=== PATIENT | male | born 1985 | race African-American/Black ===

== ENCOUNTER 2017-12-14 10:00 | Inpatient (IN) | payer OTHER ==
[2017-12-14 10:47] VITALS: BMI 37.2
--- NOTE | 2017-12-14 12:40 | HP ---
Admission ROS [facility] Chief Complaint: Here for inpatient rehab. Allergies/Adverse Reactions: Allergies Allergy/AdvReac Type Severity Reaction Status Date / Time bee pollen Allergy Verified 12/14/17 11:40 History of Present Illness: I was sent here by [facility] because of my continued marijuana and Melisa use. Marijuana use since age 14. Melisa use since age 23. Denies other substance use. Denies hx seizures or blackouts. Hx mental health disorders and being f/u at [facility]. Recent Hx suicide attempt in August 2017. Denies current thoughts of harming self or others. Search Terms: Osvaldo Zapata, 1985 Search Date: 12/14/2017 12:59:55 PM The Drug Utilization Report below displays all of the controlled substance prescriptions, if any, that your patient has filled in the last twelve months. The information displayed on this report is compiled from pharmacy submissions to the Department, and accurately reflects the information as submitted by the pharmacies. This report was requested by: Agustina Menezes | Reference #: [id number] Exam Limitations: No Limitations - Ebola screening Have you traveled outside of the country in the last 21 days: No Have you had contact with anyone from an Ebola affected area: No Have you been sick,other than usual withdrawal symptoms: No Do you have a fever: No - Review of Systems Constitutional: Changes in sleep (Difficulty staying asleep. Takes prescription benadryl. Unsure of dose.) EENT: reports: No Symptoms Reported Respiratory: reports: SOB with Exertion (After 2 flights of stairs), Other (Hx asthma. States has sleep apnea. States has a CPap machine. Haven't used it for a while.) Cardiac: reports: No Symptoms Reported GI: reports: Indigestion (Acid reflux - takes prilosec - last took 2 weeks ago) : reports: Frequency (States urinates small amounts q 1/2 to 1 hr during day. Also has frequency HS) Musculoskeletal: reports: No Symptoms Reported (Chronic LBP - achy & sharp "6". Get worses when l;aying down. Improves w/ stretching and walking.), Back Pain Integumentary: reports: No Symptoms Reported Neuro: reports: Numbness (Occ numbness (L) hand since it was broken 1 year ago.) Endocrine: reports: Increased Urine Hematology: reports: No Symptoms Reported Psychiatric: reports: Judgement Intact, Orientated x3, Anxious, Depressed ( Denies thoughts of harming self or others.), other (Hx: bipolar and schizophrenia. [facility] - last seen in October 2017.) Patient History - Patient Medical History Hx Asthma: Yes (Last exacerbation 2 weeks ago resolvced w/ albuterol inhaler) Hx Chronic Obstructive Pulmonary Disease (COPD): No Hx Cancer: No Hx Cardiac Disorders: No Hx Congestive Heart Failure: No Hx Hypertension: No Hx Hypercholesterolemia: No Hx Pacemaker: No HX Cerebrovascular Accident: No Hx Seizures: No Hx Dementia: No Hx Diabetes: No Hx Gastrointestinal Disorders: Yes (GERD) Hx Liver Disease: No Hx Genitourinary Disorders: Yes (Frequency of urination) Hx Sexually Transmitted Disorders: No Hx Renal Disease (ESRD): No Hx Thyroid Disease: No Hx Human Immunodeficiency Virus (HIV): No ( - 2017) Hx Hepatitis C: No Hx Depression: Yes Hx Suicide Attempt: Yes (August 2017) Hx Bipolar Disorder: Yes Hx Schizophrenia: Yes - Patient Surgical History Hx Abdominal Surgery: Yes (Colon resection - 1986) Hx Orthopedic Surgery: Yes (Repair (L) hand fracture 2016) Anesthesia Reaction: No - PPD History Previous Implant?: Yes Documented Results: Negative w/o proof Implanted On Prior R Admission?: No PPD to be Administered?: Yes - Smoking Cessation Smoking history: Current every day smoker Have you smoked in the past 12 months: Yes Aproximately how many cigarettes per day: 10 Hx Chewing Tobacco Use: No Initiated information on smoking cessation: Yes 'Breaking Loose' booklet given: 12/14/17 - Substance & Tx. History Hx Alcohol Use: Yes Hx Substance Use: Yes Substance Use Type: Marijuana, Tranquilizers (Melisa) Hx Substance Use Treatment: Yes (rehab) Admission Physical Exam [facility] - Vital Signs Vital Signs: Vital Signs - 24 hr 12/14/17 10:43 Temperature 98.5 F Pulse Rate 92 H Respiratory 19 Rate Blood Pressure 145/87 - Physical General Appearance: Yes: No Apparent Distress, Nourished HEENTM: Yes: EOMI, Hearing grossly Normal, Normocephalic, Normal Voice, MALCOLM, Other (Enlarged tonsils - stage 4, w/o erythema, lesions, or exudate.) Respiratory: Yes: Chest Non-Tender, Lungs Clear, Normal Breath Sounds, No Respiratory Distress Neck: Yes: No masses,lesions,Nodules, Supple Breast: Yes: Breast Exam Deferred Cardiology: Yes: Regular Rhythm, Regular Rate, S1, S2 Abdominal: Yes: Normal Bowel Sounds, Non Tender, Soft, Protuberent (Increased abdominal adiposity), Surgical Scar (Old and irregular shape.) Genitourinary: Yes: Frequency Back: Yes: Normal Inspection Musculoskeletal: Yes: full range of Motion (FROM all extremities. Able to bend and touch toes.), Gait Steady Extremities: Yes: Normal Capillary Refill, Normal Inspection, Normal Range of Motion, Non-Tender Neurological: Yes: lard bleacher II-XII NML intact, Fully Oriented, Alert, Motor Strength 5/5, Normal Response Integumentary: Yes: Normal Color, Dry, Warm Lymphatic: Yes: Within Normal Limits - Diagnostic (1) Marijuana dependence Current Visit: Yes Status: Chronic (2) Hallucinogen abuse, uncomplicated Current Visit: Yes Status: Chronic (3) Nicotine dependence, uncomplicated Current Visit: Yes Status: Chronic Qualifiers: Nicotine product type: cigarettes Qualified Code(s): F17.210 - Nicotine dependence, cigarettes, uncomplicated (4) Asthma Current Visit: Yes Status: Chronic Qualifiers: Asthma severity: unspecified severity Asthma persistence: intermittent Asthma complication type: uncomplicated Qualified Code(s): J45.20 - Mild intermittent asthma, uncomplicated (5) Tonsillar enlargement Current Visit: Yes Status: Chronic Cleared for Admission BHS - Detox or Rehab Claeared for Rehab Admission: Yes [facility] Breath Alcohol Content Breath Alcohol Content: 0 Urine Drug Screen - Results Drug Screen Negative: No Urine Drug Screen Results: THC-Marijuana Inpatient Rehab Admission - Initial Determination Are CD services needed?: Yes Free of communicable disease: Yes Not in need of hospitalization: Yes - Rehab Admission Criteria Previous failed treatment: Yes Poor recovery environment: Yes Comorbidities: Yes Lacks judgement: No Patient is meeting Inpatient Rehab admission criteria:: Yes
[2017-12-14] MEDS ORDERED: guaiFENesin/D-METHORPHAN HB 10 ML UNIT-DOSE CUPS PO PRN (13:12)
[2017-12-14] MEDS ORDERED: IBUPROFEN 400 MG TABLET (FP) PO PRN (13:12)
[2017-12-14] MEDS ORDERED: MAG HYDROX/AL HYDROX/SIMETH 30 ML UNIT-DOSE CUP PO PRN (13:12)
[2017-12-14] MEDS ORDERED: ACETAMINOPHEN 325 MG TABLET (FP) PO PRN (13:12)
[2017-12-14] MEDS ORDERED: hydrOXYzine PAMOATE 50 MG CAPSULE (FP) PO PRN (13:12)
[2017-12-14] MEDS ORDERED: MAGNESIUM CITRATE 300 ML BOTTLE PO PRN (13:12)
[2017-12-14] MEDS ORDERED: MENTHOL/PHENOL 1 EACH UD MM PRN (13:12)
[2017-12-14] MEDS ORDERED: MAGNESIUM HYDROX 2400MG/30ML ORAL SUSPENSION 30 ML CUP PO PRN (13:12)
[2017-12-14] MEDS ORDERED: LOPERAMIDE HCL 2 MG CAPSULE PO PRN (13:12)
[2017-12-14] MEDS ORDERED: TUBERCULIN PPD 5 TU/0.1ML VIAL ID ONE (16:27)
[2017-12-14] MEDS: NICOTINE 14 MG/24 HOURS TOPICAL PATCH TD SCH (17:02)
--- NOTE | 2017-12-14 19:27 | PN ---
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 Pt. requesting haldol 5mg BID + benadryl 50mg + Risperdal 2mg qhs. Pharmacy claims reviewed. No prescriptions of risperdal noted. Will order haldol 5mg qhs + Benadryl 50mg qhs. Last prescription sent to patient's pharmacy on 09/24/17. Risperdal will not be ordered at this time. Patient to be seen by unit psychiatrist tomorrow morning.
[2017-12-14] MEDS: THIAMINE HCL 100 MG TABLET (FP) PO SCH (21:47)
[2017-12-14] MEDS: diphenhydrAMINE HCL 50 MG CAPSULE PO SCH (21:47)
[2017-12-14] MEDS: HALOPERIDOL 5 MG TABLET (FP) PO SCH (21:48)
[2017-12-14] MEDS ORDERED: HALOPERIDOL 5 MG TABLET (FP) PO SCH (22:00)
[2017-12-14] MEDS ORDERED: MELATONIN 5 MG TABLETS PO PRN (22:00)
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
[2017-12-15] MEDS: NICOTINE 14 MG/24 HOURS TOPICAL PATCH TD SCH (10:06)
[2017-12-15] MEDS: PRENATAL VITAMINS W/ FOLIC ACID TABLET (FP) PO SCH (10:06)
--- NOTE | 2017-12-15 13:01 | EKG ---
Test Reason : Blood Pressure : / mmHG Vent. Rate : 106 BPM Atrial Rate : 106 BPM P-R Int : 156 ms QRS Dur : 078 ms QT Int : 346 ms P-R-T Axes : 061 070 025 degrees QTc Int : 459 ms SINUS TACHYCARDIA WITH OCCASIONAL PREMATURE VENTRICULAR COMPLEXES OTHERWISE NORMAL ECG Confirmed by MD JUSTA, IVETH ([id number]) on 12/15/2017 1:00:35 PM Referred By: Confirmed By:IVETH MARR MD
--- NOTE | 2017-12-15 15:05 | PN ---
[facility] Progress Note Note: Staff at [facility] contacted regarding patient Haldol Dec injection. According to Puja, staff at [facility], Patient is on Haldol Decanoate 150 mg IM Q 28 days. He last received the Injection was 10/13/17. Haldol Decanoate injection 150 mg IM once is ordered to be given to patient on 12/16/17 at 10AM
[2017-12-15 16:07] LABS: ALK PHOS 93 U/L (45-117); ANION GAP 7 MMOL/L (8-16); BILIRUBIN,TOTAL 0.6 mg/dL (0.2-1); BLOOD UREA NITROGEN 13 mg/dL (7-18); CALCIUM 9.2 mg/dL (8.5-10.1); CHLORIDE 105 mmol/L (98-107); CO2 29 mmol/L (21-32); CREATININE 1.2 mg/dL (0.55-1.3); GLUCOSE,RANDOM 89 mg/dL (74-106); POTASSIUM 3.8 mmol/L (3.5-5.1); SGOT/AST 18 U/L (15-37); SGPT/ALT 24 U/L (13-61); SODIUM 140 mmol/L (136-145)
[2017-12-15 16:16] LABS: HEMATOCRIT 46.4 % (35.4-49); HEMOGLOBIN 15.5 GM/dL (11.7-16.9); MCH 31.2 pg (25.7-33.7); MCHC 33.5 g/dl (32.0-35.9); MEAN CELL VOLUME 93.2 fl (80-96); MEAN PLT VOLUME 10.9 fl (7.5-11.1); PLATELET COUNT 212 K/MM3 (134-434); RBC 4.98 M/mm3 (4.00-5.60); RDW 12.7 % (11.9-15.9)
[2017-12-15] MEDS: HALOPERIDOL 5 MG TABLET (FP) PO SCH (21:54)
[2017-12-15] MEDS: OLANZapine 7.5 MG TABLET PO SCH (21:55)
[2017-12-15] MEDS: diphenhydrAMINE HCL 50 MG CAPSULE PO SCH (21:55)
[2017-12-15] MEDS: THIAMINE HCL 100 MG TABLET (FP) PO SCH (21:55)
[2017-12-16] MEDS ORDERED: HALOPERIDOL DECANOATE 100 MG/ML IM ONE (10:00)
[2017-12-16] MEDS: PRENATAL VITAMINS W/ FOLIC ACID TABLET (FP) PO SCH (10:02)
[2017-12-16] MEDS: NICOTINE 14 MG/24 HOURS TOPICAL PATCH TD SCH (10:02)
[2017-12-16] MEDS: HALOPERIDOL 5 MG TABLET (FP) PO SCH (22:01)
[2017-12-16] MEDS: diphenhydrAMINE HCL 50 MG CAPSULE PO SCH (22:01)
[2017-12-16] MEDS: THIAMINE HCL 100 MG TABLET (FP) PO SCH (22:01)
[2017-12-16] MEDS: OLANZapine 7.5 MG TABLET PO SCH (22:01)
[2017-12-17] MEDS: PRENATAL VITAMINS W/ FOLIC ACID TABLET (FP) PO SCH (09:31)
[2017-12-17] MEDS: NICOTINE 14 MG/24 HOURS TOPICAL PATCH TD SCH (09:31)
[2017-12-17] MEDS: NICOTINE POLACRILEX 2 MG GUM BUC PRN (16:00)
[2017-12-17] MEDS: diphenhydrAMINE HCL 50 MG CAPSULE PO SCH (22:02)
[2017-12-17] MEDS: HALOPERIDOL 5 MG TABLET (FP) PO SCH (22:02)
[2017-12-17] MEDS: OLANZapine 7.5 MG TABLET PO SCH (22:02)
[2017-12-17] MEDS: THIAMINE HCL 100 MG TABLET (FP) PO SCH (22:02)
[2017-12-18] MEDS: NICOTINE 14 MG/24 HOURS TOPICAL PATCH TD SCH (10:00)
[2017-12-18] MEDS: PRENATAL VITAMINS W/ FOLIC ACID TABLET (FP) PO SCH (10:00)
[2017-12-18] MEDS: THIAMINE HCL 100 MG TABLET (FP) PO SCH (21:56)
[2017-12-18] MEDS: HALOPERIDOL 5 MG TABLET (FP) PO SCH (21:56)
[2017-12-18] MEDS: diphenhydrAMINE HCL 50 MG CAPSULE PO SCH (21:57)
[2017-12-18] MEDS: OLANZapine 7.5 MG TABLET PO SCH (21:57)
[2017-12-19] MEDS: PRENATAL VITAMINS W/ FOLIC ACID TABLET (FP) PO SCH (10:38)
[2017-12-19] MEDS: NICOTINE 14 MG/24 HOURS TOPICAL PATCH TD SCH (10:39)
[2017-12-19] MEDS: NICOTINE POLACRILEX 2 MG GUM BUC PRN (10:40)
[2017-12-19] MEDS: OLANZapine 7.5 MG TABLET PO SCH (21:45)
[2017-12-19] MEDS: HALOPERIDOL 5 MG TABLET (FP) PO SCH (21:45)
[2017-12-19] MEDS: THIAMINE HCL 100 MG TABLET (FP) PO SCH (21:45)
[2017-12-19] MEDS: diphenhydrAMINE HCL 50 MG CAPSULE PO SCH (21:45)
[2017-12-20] MEDS: PRENATAL VITAMINS W/ FOLIC ACID TABLET (FP) PO SCH (10:13)
[2017-12-20] MEDS: NICOTINE 14 MG/24 HOURS TOPICAL PATCH TD SCH (10:13)
[2017-12-20] MEDS: NICOTINE POLACRILEX 2 MG GUM BUC PRN (14:49)
[2017-12-20] MEDS: OLANZapine 7.5 MG TABLET PO SCH (21:43)
[2017-12-20] MEDS: diphenhydrAMINE HCL 50 MG CAPSULE PO SCH (21:43)
[2017-12-20] MEDS: HALOPERIDOL 5 MG TABLET (FP) PO SCH (21:43)
[2017-12-20] MEDS: THIAMINE HCL 100 MG TABLET (FP) PO SCH (21:43)
[2017-12-21] MEDS: NICOTINE 14 MG/24 HOURS TOPICAL PATCH TD SCH (10:08)
[2017-12-21] MEDS: PRENATAL VITAMINS W/ FOLIC ACID TABLET (FP) PO SCH (10:08)
[2017-12-21] MEDS ORDERED: PT OWN MED DRAWER 7, Y5N ONE ×2 (19:19→21:51)
[2017-12-21] MEDS: NICOTINE POLACRILEX 2 MG GUM BUC PRN (19:38)
[2017-12-21] MEDS: THIAMINE HCL 100 MG TABLET (FP) PO SCH (21:50)
[2017-12-21] MEDS: HALOPERIDOL 5 MG TABLET (FP) PO SCH (21:50)
[2017-12-21] MEDS: diphenhydrAMINE HCL 50 MG CAPSULE PO SCH (21:50)
[2017-12-21] MEDS: OLANZapine 7.5 MG TABLET PO SCH (21:52)
[2017-12-22] MEDS: PRENATAL VITAMINS W/ FOLIC ACID TABLET (FP) PO SCH (10:19)
[2017-12-22] MEDS: NICOTINE 14 MG/24 HOURS TOPICAL PATCH TD SCH (10:19)
[2017-12-22] MEDS: NICOTINE POLACRILEX 2 MG GUM BUC PRN ×2 (10:20→16:54)
[2017-12-22] MEDS ORDERED: PT OWN MED DRAWER 7, Y5N ONE (20:11)
[2017-12-22] MEDS: diphenhydrAMINE HCL 50 MG CAPSULE PO SCH (21:59)
[2017-12-22] MEDS: HALOPERIDOL 5 MG TABLET (FP) PO SCH (21:59)
[2017-12-22] MEDS: THIAMINE HCL 100 MG TABLET (FP) PO SCH (21:59)
[2017-12-22] MEDS: OLANZapine 7.5 MG TABLET PO SCH (22:00)
[2017-12-23] MEDS: NICOTINE 14 MG/24 HOURS TOPICAL PATCH TD SCH (09:57)
[2017-12-23] MEDS: PRENATAL VITAMINS W/ FOLIC ACID TABLET (FP) PO SCH (09:57)
[2017-12-23] MEDS: OLANZapine 7.5 MG TABLET PO SCH (21:22)
[2017-12-23] MEDS: diphenhydrAMINE HCL 50 MG CAPSULE PO SCH (21:22)
[2017-12-23] MEDS: THIAMINE HCL 100 MG TABLET (FP) PO SCH (21:22)
[2017-12-23] MEDS: HALOPERIDOL 5 MG TABLET (FP) PO SCH (21:22)
[2017-12-24] MEDS: NICOTINE 14 MG/24 HOURS TOPICAL PATCH TD SCH (09:46)
[2017-12-24] MEDS: PRENATAL VITAMINS W/ FOLIC ACID TABLET (FP) PO SCH (09:46)
[2017-12-24] MEDS: NICOTINE POLACRILEX 2 MG GUM BUC PRN (18:53)
[2017-12-24] MEDS ORDERED: PT OWN MED DRAWER 7, Y5N ONE (20:40)
[2017-12-24] MEDS: diphenhydrAMINE HCL 50 MG CAPSULE PO SCH (21:53)
[2017-12-24] MEDS: THIAMINE HCL 100 MG TABLET (FP) PO SCH (21:53)
[2017-12-24] MEDS: HALOPERIDOL 5 MG TABLET (FP) PO SCH (21:53)
[2017-12-24] MEDS: OLANZapine 7.5 MG TABLET PO SCH (21:54)
[2017-12-25] MEDS: PRENATAL VITAMINS W/ FOLIC ACID TABLET (FP) PO SCH (10:07)
[2017-12-25] MEDS: NICOTINE 14 MG/24 HOURS TOPICAL PATCH TD SCH (10:07)
[2017-12-25] MEDS ORDERED: PT OWN MED DRAWER 7, Y5N ONE (19:50)
[2017-12-25] MEDS: THIAMINE HCL 100 MG TABLET (FP) PO SCH (21:06)
[2017-12-25] MEDS: HALOPERIDOL 5 MG TABLET (FP) PO SCH (21:06)
[2017-12-25] MEDS: diphenhydrAMINE HCL 50 MG CAPSULE PO SCH (21:06)
[2017-12-25] MEDS: OLANZapine 7.5 MG TABLET PO SCH (21:07)
[2017-12-25] MEDS: NICOTINE POLACRILEX 2 MG GUM BUC PRN (21:08)
[2017-12-26] MEDS: PRENATAL VITAMINS W/ FOLIC ACID TABLET (FP) PO SCH (10:05)
[2017-12-26] MEDS: NICOTINE 14 MG/24 HOURS TOPICAL PATCH TD SCH (10:05)
[2017-12-26] MEDS: HALOPERIDOL 5 MG TABLET (FP) PO SCH (21:47)
[2017-12-26] MEDS: THIAMINE HCL 100 MG TABLET (FP) PO SCH (21:47)
[2017-12-26] MEDS: diphenhydrAMINE HCL 50 MG CAPSULE PO SCH (21:47)
[2017-12-26] MEDS ORDERED: PT OWN MED DRAWER 7, Y5N ONE (21:48)
[2017-12-26] MEDS: OLANZapine 7.5 MG TABLET PO SCH (21:48)
[2017-12-27 10:57] LABS: URINE APPEARANCE CLEAR; URINE BILIRUBIN NEGATIVE (<2.0 mg/dL); URINE COLOR LTYELLOW; URINE GLUCOSE (UA) NEGATIVE (NEGATIVE); URINE KETONE NEGATIVE (NEGATIVE); URINE LEUK ESTERASE TRACE (NEGATIVE); URINE NITRITE NEGATIVE (NEGATIVE); URINE PROTEIN NEGATIVE (NEGATIVE); URINE UROBILINOGEN NEGATIVE mg/dL (0.2-1.0)
[2017-12-27 11:01] LABS: EPI CELLS RARE /HPF (FEW)
[2017-12-27] MEDS: NICOTINE 14 MG/24 HOURS TOPICAL PATCH TD SCH (11:32)
[2017-12-27] MEDS: PRENATAL VITAMINS W/ FOLIC ACID TABLET (FP) PO SCH (11:32)
[2017-12-27] MEDS ORDERED: PT OWN MED DRAWER 7, Y5N ONE (19:31)
[2017-12-27] MEDS: THIAMINE HCL 100 MG TABLET (FP) PO SCH (22:22)
[2017-12-27] MEDS: HALOPERIDOL 5 MG TABLET (FP) PO SCH (22:22)
[2017-12-27] MEDS: diphenhydrAMINE HCL 50 MG CAPSULE PO SCH (22:22)
[2017-12-27] MEDS: OLANZapine 7.5 MG TABLET PO SCH (22:23)
[2017-12-28] MEDS: PRENATAL VITAMINS W/ FOLIC ACID TABLET (FP) PO SCH (09:58)
[2017-12-28] MEDS: NICOTINE 14 MG/24 HOURS TOPICAL PATCH TD SCH (09:58)
[2017-12-28] MEDS: diphenhydrAMINE HCL 50 MG CAPSULE PO SCH (21:28)
[2017-12-28] MEDS: HALOPERIDOL 5 MG TABLET (FP) PO SCH (21:28)
[2017-12-28] MEDS: THIAMINE HCL 100 MG TABLET (FP) PO SCH (21:28)
[2017-12-28] MEDS: OLANZapine 7.5 MG TABLET PO SCH (21:29)
--- NOTE | 2017-12-29 06:18 | PN ---
Psychiatric Progress Note Vital Signs: Vital Signs Period Temp Pulse Resp BP Sys/Swanson Pulse Ox Last 24 Hr 98.2 F 90 20-20 128/76 Date of Session: 12/29/17 Chief Complaint:: Discharge Note HPI: Patient addressing Cannabis Dependence, Hallucinogen Abuse comorbid with Nicotine Dependence, Schizoaffective Disorder, Substance-Induced Mood Disorder and Substance-Induced Sleep Disorder ROS: GERD Current Medications: Active Medications Generic Name Dose Route Start Last Admin Trade Name Freq PRN Reason Stop Dose Admin Acetaminophen 650 mg 12/14/17 13:12 12/18/17 19:16 Tylenol - PO 650 mg Q4H PRN Administration FEVER Al Hydroxide/Mg Hydroxide 30 ml 12/14/17 13:12 12/24/17 21:53 Mylanta Oral Suspension - PO 30 ml Q6H PRN Administration DYSPEPSIA Diphenhydramine HCl 50 mg 12/14/17 22:00 12/28/17 21:28 Benadryl - PO 50 mg HS RAMON Administration Eucalyptus/Menthol/Phenol/Sorbitol 1 each 12/14/17 13:12 Cepastat Lozenge - MM Q4H PRN SORE THROAT Guaifenesin 10 ml 12/14/17 13:12 Robitussin Dm - PO Q6H PRN COUGH Haloperidol 5 mg 12/14/17 22:00 12/28/17 21:28 Haldol - PO 5 mg HS RAMON Administration Hydroxyzine Pamoate 50 mg 12/14/17 13:12 Vistaril - PO Q4H PRN AGITATION Ibuprofen 400 mg 12/14/17 13:12 Motrin - PO Q6H PRN Pain level 4-6 Loperamide HCl 4 mg 12/14/17 13:12 Imodium - PO Q6H PRN DIARRHEA Magnesium Citrate 300 ml 12/14/17 13:12 Citroma - PO Q48H PRN CONSTIPATION Magnesium Hydroxide 30 ml 12/14/17 13:12 Milk Of Magnesia - PO DAILY PRN CONSTIPATION Melatonin 5 mg 12/14/17 22:00 Melatonin PO HS PRN INSOMNIA Nicotine 14 mg 12/14/17 14:30 12/28/17 09:58 Nicoderm Patch - TD 14 mg DAILY RAMON Administration Nicotine Polacrilex 2 mg 12/14/17 13:12 12/25/17 21:08 Nicorette Gum - BUC 2 mg Q2H PRN Administration NICOTINE REPLACEMENT RX Olanzapine 15 mg 12/15/17 22:00 12/28/17 21:29 Zyprexa - PO 15 mg HS RAMON Administration Multivit/Folic Acid/Iron 1 tab 12/15/17 10:00 12/28/17 09:58 Vitamins (Sjr) - PO 1 tab DAILY RAMON Administration Thiamine HCl 100 mg 12/14/17 22:00 12/28/17 21:28 Vitamin B1 - PO 100 mg HS RAMON Administration Current Side Effect: No Lab tests ordered: Yes Lab tests reviewed: Yes Provider note:: Patient has completed this program today. He has met his treatment goals and will continue to addess his issues in outpatient treatment at [facility] at [address] [place] [address]. Told newspaper writer that from his participation in this program, he has learned to surround himself with a sober support network in [facility] to maintain abstinence. He responded well to Haldol 5 mg po HS, Zyprexa 15 mg po HS, Benadryl 50 mg po HS and Haldol decanoate 150 mg IM given on 12/16/17(next injection due on 01/13/18). Scripts for all oral medications are electronically transmitted to [facility] at [address] [place] [address]. He is stable for discharge today Total face to face time:: 35 Mental Status Exam - Mental Status Exam Alert and Oriented to: Time, Place, Person Cognitive Function: Fair Patient Appearance: Well Groomed Mood: Hopeful, Euthymic Affect: Appropriate Patient Behavior: Cooperative Speech Pattern: Clear Voice Loudness: Normal Thought Process: Intact, Goal Oriented Thought Disorder: Not Present Hallucinations: Denies Suicidal Ideation: Denies Homicidal Ideation: Denies Insight/Judgement: Fair Sleep: Fair Appetite: Fair Muscle strength/Tone: Normal Gait/Station: Normal Psychiatric Treatment Plan - Problem List (1) Cannabis dependence Current Visit: Yes (2) Hallucinogen abuse Current Visit: Yes (3) Nicotine dependence Current Visit: Yes (4) Schizoaffective disorder Current Visit: Yes (5) Substance induced mood disorder Current Visit: Yes (6) Substance-induced sleep disorder Current Visit: Yes (7) GERD (gastroesophageal reflux disease) Current Visit: Yes Initial treatment plan: Patient is discharged today and referred to [facility] for outpatient treatment
[2017-12-29 06:43] VITALS: BP 120/79; PULSE 103; TEMP 97.8
== END 2017-12-29 08:25 | disposition home or self-care (01) | DRG 772 ==
LOC: YASAS 10:00 → Y3W 14:09
PROVIDERS: ADMIT Psychiatry & Neurology Psychiatry; ATTEND Psychiatry & Neurology Psychiatry
PROC: HZ42ZZZ Group Counseling for Substance Abuse Treatment, Cognitive-Behavioral (ICD-10-PCS; principal; 2017-12-14)
DX: F12.20 Cannabis dependence, uncomplicated (principal); F16.10 Hallucinogen abuse, uncomplicated; F17.210 Nicotine dependence, cigarettes, uncomplicated; F31.9 Bipolar disorder, unspecified; F25.9 Schizoaffective disorder, unspecified; F19.24 Other psychoactive substance dependence with psychoactive substance-induced mood disorder; F19.282 Other psychoactive substance dependence with psychoactive substance-induced sleep disorder; K21.9 Gastro-esophageal reflux disease without esophagitis; J45.909 Unspecified asthma, uncomplicated; R35.0 Frequency of micturition; Z91.5 Personal history of self-harm
CPT/HCPCS: 36415; 80053; 81003; 81015; 85027; 86593; 93005; 93010

== ENCOUNTER 2021-02-06 02:57 | Emergency (ER) | payer SELFPAY ==
[2021-02-06 03:29] VITALS: BP 127/80; PULSE 88; TEMP 98.1; BMI 35.6
== END 2021-02-06 05:27 | disposition home or self-care (01) ==
LOC: JER 02:57
PROC: 0HQFXZZ Repair Right Hand Skin, External Approach (ICD-10-PCS; principal; 2021-02-06)
DX: S61.210A Laceration without foreign body of right index finger without damage to nail, initial encounter (principal); W26.0XXA Contact with knife, initial encounter; Y93.G1 Activity, food preparation and clean up
CPT/HCPCS: 99282-25